=== PATIENT | female | born 1995 | race African-American/Black ===

== ENCOUNTER 2020-02-28 12:54 | Emergency (ER) | payer OTHER ==
--- NOTE | 2020-02-28 13:20 | ED ---
HPI Chest Pain - HPI Summary HPI Summary: The patient is a 24-year-old female presenting to [facility] [facility] Emergency Department with a chief complaint of bilateral chest pain for 4-5 days. She reports that she has been experiencing a pressure-pain with intermittent sharp pain. Pain currently rated 6/10 in severity. Today, she developed shortness of breath. She denies any nausea, vomiting, diarrhea, loss of taste or small. She has been in isolation at home except for going to the store for grocery shopping, and she also had an cosmetic sales consultant appointment a week and a half ago. No known sick contact. No past medical history. Nonsmoker. Admits to occasional alcohol use. No substance use. Medications reviewed. Allergies noted. - History of Current Complaint Chief Complaint: EDChestPainROMI Time Seen by Provider: 02/28/20 13:05 Hx Obtained From: Patient Onset/Duration: Started Days Ago, Still Present Timing: Intermittent Initial Severity: Mild Current Severity: Moderate Pain Intensity: 6 Pain Scale Used: 0-10 Numeric Chest Pain Location: Diffuse Chest Pain Radiates: No Character: Pressure/Squeezing, Sharp/Stabbing Aggravating Factor(s): Nothing Alleviating Factor(s): Nothing Associated Signs and Symptoms: Positive: Chest Pain, Shortness of Breath. Negative: Nausea, Vomiting, Other: - diarrhea, loss of taste or smell - Allergy/Home Medications Allergies/Adverse Reactions: Allergies Allergy/AdvReac Type Severity Reaction Status Date / Time No Known Allergies Allergy Verified 02/28/20 13:55 Home Medications: Home Medications NK [No Home Medications Reported] 02/28/20 [History Confirmed 02/28/20] PMH/Surg Hx/FS Hx/Imm Hx Endocrine/Hematology History: Denies: Hx Diabetes Cardiovascular History: Denies: Hx Hypercholesterolemia, Hx Hypertension - Surgical History Surgical History: None Surgery Procedure, Year, and Place: none Infectious Disease History: No Infectious Disease History: Denies: Traveled Outside the [place] in Last 30 Days - Family History Known Family History: Positive: Hypertension - Social History Alcohol Use: Occasionally Hx Substance Use: No Substance Use Type: Reports: None Hx Tobacco Use: No Smoking Status (MU): Never Smoked Tobacco Review of Systems Negative: Other - loss of taste or smell Positive: Chest Pain - bilateral pressure with intermittent sharp pain Positive: Shortness Of Breath Negative: Vomiting, Diarrhea, Nausea All Other Systems Reviewed And Are Negative: Yes Physical Exam - Summary Physical Exam Summary: VITAL SIGNS: Reviewed. GENERAL: Patient is a well-developed and nourished female who is lying comfortable in the stretcher. Patient is not in any acute respiratory distress. HEAD AND FACE: No signs of trauma. No ecchymosis, hematomas or skull depressions. No sinus tenderness. EYES: PERRL, EOMI x 2, No injected conjunctiva, no nystagmus. EARS: Hearing grossly intact. Ear canals and tympanic membranes are within normal limits. MOUTH: Oropharynx within normal limits. NECK: Supple, trachea is midline, no adenopathy, no JVD, no carotid bruit, no c- spine tenderness, neck with full ROM. CHEST: Symmetric, reproducible chest pain with palpation. LUNGS: Clear to auscultation bilaterally. No wheezing or crackles. CVS: Regular rate and rhythm, S1 and S2 present, no murmurs or gallops appreciated. ABDOMEN: Soft, non-tender. No signs of distention. No rebound, no guarding, and no masses palpated. Bowel sounds are normal. EXTREMITIES: FROM in all major joints, no edema, no cyanosis or clubbing. NEURO: Alert and oriented x 3. No acute neurological deficits. Speech is normal and follows commands. SKIN: Dry and warm. Triage Information Reviewed: Yes Vital Signs On Initial Exam: Initial Vitals Temp Pulse Resp BP Pulse Ox 98.7 F 111 18 138/68 99 02/28/20 13:02 02/28/20 13:02 02/28/20 13:02 02/28/20 13:02 02/28/20 13:02 Vital Signs Reviewed: Yes Procedures - Sedation Patient Received Moderate/Deep Sedation with Procedure: No Diagnostics - Vital Signs Vital Signs Temp Pulse Resp BP Pulse Ox 02/28/20 13:02 98.7 F 111 18 138/68 99 - Laboratory Result Diagrams: 02/28/20 13:40 02/28/20 13:40 Lab Statement: Any lab studies that have been ordered have been reviewed, and results considered in the medical decision making process. - Radiology Chest X-Ray Radiology Interpretation Completed By: Radiologist Summary of Radiographic Findings: Impression: No evidence for acute disease. Dr. Tolbert has reviewed this report. - EKG 1301 Cardiac Rate: NL - 94 BPM EKG Rhythm: Sinus Rhythm Summary of EKG Findings: EKG at 1301 reveals normal sinus rhythm at [address] Tolbert has reviewed and interpreted this EKG. Re-Evaluation - Re-Evaluation First Eval Re-Evaluation Time: 14:45 Comment: I discussed all results with the patient and plan for discharge home. Chest Pain Course/Dx - Course Assessment/Plan: The patient is a 24-year-old female presenting to [facility] Emergency Department with a chief complaint of bilateral chest pain for 4-5 days. She reports that she has been experiencing a pressure-pain with intermittent sharp pain. Pain currently rated 6/10 in severity. Today, she developed shortness of breath. She denies any nausea, vomiting, diarrhea, loss of taste or small. She has been in isolation at home except for going to the store for grocery shopping, and she also had an cosmetic sales consultant appointment a week and a half ago. No known sick contact. No past medical history. Nonsmoker. Admits to occasional alcohol use. No substance use. Medications reviewed. Allergies noted. In the ED course the patient was placed on a desk monitor, IV access was obtained. Tylenol was given for atypical chest pain. Past medical records reviewed. Blood test w/o any significant abnormality. CXR: no acute pathology. EKG: NSR w/o ST elevation. COVID test was sent. Patient is hemodynamically stable and has no complaints at this time. She will be discharged home with F/U of PCP. She was recommended to be in isolation for 2 weeks. Patient reports that all symptoms have resolved. Patient's Heart score is : 0, therefore, low suspicion for CAD. Patient is not hypoxic or tachycardic. Wells criteria 0. Therefore, no suspicion for PE. Patient has no abdominal bruit , thus no suspicion for AAA. Patients pain does not radiate to the back, and pain has resolved, thus low suspicion for aortic dissection. I discussed all the findings and test results with the patient. Patient was instructed to return to the emergency room immediately if any of the symptoms return or worsen. Patient understands and agrees. Plan of care was discussed with the patient and patient understands and agrees. All questions were answered at patient satisfaction. There were no further complaints or concerns. PE before discharge: CVS: S1 and S2 present. No murmurs appreciated. Abdominal exam before discharge: Soft, non-tender. No signs of distention. No rebound, no guarding, and no masses palpated. Bowel sounds are normal. Patient is alert and oriented x 3. Patient is hemodynamically stable. - Diagnoses Provider Diagnoses: Atypical chest pain - Critical Care Time Critical Care Statement: Critical care time is provided exclusive of any time spent performing procedures. Discharge ED - Sign-Out/Discharge Documenting (check all that apply): Patient Departure - Patient will be discharged home. - Discharge Plan Condition: Stable Disposition: HOME Patient Education Materials: Chest Pain (DC) Forms: COVID-19 Tested & Isolation Referrals: [facility] - Yuan GALINDO [Primary Care Provider] - 3 Days Additional Instructions: You were seen in the emergency department for coronavirus rule out. The department of health will contact you within 24 hours. Due to the pandemic, you should stay in your house and self quarantine. See the separate quarantine paper for further instructions. You should wear a mask if you're outside of your personal room. We encourage handwashing as well as limited contact with other people including the elderly and the immunocompromised. If any studies were not completed at the time of discharge, you will be called with the relevant results. Return to the emergency department for severe trouble breathing, worsening or concerning symptoms. - Billing Disposition and Condition Condition: STABLE Disposition: Home - Attestation Statements Document Initiated by Charly: Yes Documenting Scribe: Nathalia Whyte Provider For Whom Charly is Documenting (Include Credential): Yobany Tolbert MD Scribe Attestation: Nathalia Payne scribed for Yobany Tolbert MD on 03/01/20 at 0756. Scribe Documentation Reviewed: Yes Provider Attestation: The documentation as recorded by the Nathalia nunez accurately reflects the service I personally performed and the decisions made by me, Yobany Tolbert MD Status of Scribe Document: Viewed
[2020-02-28 13:56] LABS: ABS Eosinophils 0.1 10^3/ul (0-0.6); ABS Monocytes 0.6 10^3/ul (0-0.8); ABS Neutrophils 5.2 10^3/ul (1.5-7.7); Eosinophil % 1.2 %; Hematocrit 41 % (35-47); Hemoglobin 14.2 g/dL (12.0-16.0); Lymphocyte % 25.5 %; Mean Corpuscular HGB Conc 35 g/dL (31-36); Mean Corpuscular Hemoglobin 32 pg (27-31); Mean Corpuscular Volume 90 fL (80-97); Mean Platelet Volume 8.7 fL (7.4-10.4); Nucleated Red Blood Cells % 0.1; Platelet Count 244 10^3/uL (150-450); Red Cell Distribution Width 13 % (10-15)
[2020-02-28 14:15] LABS: ALT 10 U/L (7-52); AST 16 U/L (13-39); Albumin 4.5 g/dL (3.2-5.2); Albumin/Globulin Ratio 1.3 (1-3); Alkaline Phosphatase 43 U/L (34-104); Anion Gap 6 mmol/L (2-11); BUN/Creatinine Ratio 10.3 (8-20); Blood Urea Nitrogen 8 mg/dL (6-24); C Reactive Protein < 1.00 mg/L (<8.01); CO2 Carbon Dioxide 27 mmol/L (22-32); Calcium 9.8 mg/dL (8.6-10.3); Chloride 104 mmol/L (101-111); Creatine Kinase 97 U/L (10-223); EGFR African American 108.9 (>60); Globulin 3.5 g/dL (2-4); Glucose 87 mg/dL (70-100); Potassium 3.7 mmol/L (3.5-5.0); Sodium 137 mmol/L (135-145)
[2020-02-28 14:20] LABS: CKMB ng/mL 1.2 ng/mL (0.6-6.3)
[2020-02-28 14:22] LABS: HCG Pregnancy < 0.60 mIU/mL
[2020-02-28 15:11] VITALS: BP 123/73
== END 2020-02-28 15:08 | disposition home or self-care (01) ==
LOC: ED 12:54
DX: R07.89 Other chest pain (principal); R06.02 Shortness of breath; Z20.828 Contact with and (suspected) exposure to other viral communicable diseases
CPT/HCPCS: 36415; 71045; 80053; 82550; 82553; 83605; 83880; 84484; 84702; 85025; 86140; 87040; 87635; 99284